=== PATIENT | female | born 1955 | race Caucasian/White ===

== ENCOUNTER 2018-04-23 19:20 | Emergency (ER) | payer BC, SELFPAY ==
[2018-04-23 19:21] VITALS: BP 159/75; PULSE 95; RESP 16; TEMP 37.2; O2SAT 95; BMI 29.5
--- NOTE | 2018-04-23 19:25 | RAD_ITS ---
STUDY: X-RAY - LEFT FOOT CLINICAL: Female, 62 years old. Fifth toe injury TECHNIQUE: 3 view(s) of the foot. COMPARISON: None. FINDINGS: There is a tiny plantar aspect calcaneal spur. Normal visualized subtalar, talonavicular, calcaneocuboid, tarsal and tarsometatarsal articulations. Normal metatarsi. Normal metatarsophalangeal joint of the great toe. Normal tibial and fibular sesamoid bones. Normal interphalangeal joint of the great toe. Normal phalanges of the great toe. Normal second through fifth metatarsophalangeal joints. There is a nondisplaced oblique fracture of the base of the fifth proximal phalanx. The fracture line involves the fifth metatarsophalangeal joint space. The soft tissue structures are unremarkable. RAD/Foot min 3 Views IMPRESSION: Nondisplaced oblique fracture of the base of the fifth proximal phalanx, involving the fifth metatarsophalangeal joint space. Tiny plantar aspect calcaneal spur. Electronically Signed: Nate Nath MD at 19:55 EDT , Service support ,
--- NOTE | 2018-04-23 20:11 | ED.DCSUM_ITS ---
- ER Visit Summary Date of Service: 04/23/18 Chief Complaint: [Injury left foot] History of Present Illness: The patient is a 62 F [presents the emergency department complaint of an injury to her left foot that occurred approximately 5 PM today. Patient states that she accidentally kicked a table with her foot. Patient having pain at the base of her fifth toe. She denies any other injuries.] Physical Examination: [Left foot-patient has tenderness palpation at the base of the fifth toe. No obvious deformity. No significant ecchymosis or bruising noted. She is neurovascular intact.] Test Results: [X-ray of the left foot obtained showed a fracture at the base of the proximal phalanx of the fifth toe.] Emergency Department Course and Treatment: [Patient had the fifth toe and fourth toe miranda taped] Treatment Plan: [Ice and elevation and Tylenol for discomfort. I will write her a prescription for a few [place] for severe pain should she need it.] Disposition: [Discharged home in stable condition] Impression: [Fracture left fifth toe proximal phalanx base] This note was generated with [employer] dictation software. It may contain incorrect words, spelling, and punctuation that were not noted in review of the chart prior to signing ED Disposition - Plan for ED Patient: Chief Complaint: Lower Extremity Injury Referrals: Anabel Daniel MD [Primary Care Provider] -
--- NOTE | 2018-04-23 20:12 | DCINST.ED_ITS ---
ED Disposition - Plan for ED Patient: Chief Complaint: Lower Extremity Injury Instructions: ED Fx Toe Closed Prescriptions: Hydrocodone Bitart/Apap 5-325 [[place] 5MG-325MG] 1 tab PO Q4H PRN PRN 2 Days #10 tab PRN Reason: Pain Referrals: Anabel Daniel MD [Primary Care Provider] - 5-7 Days
== END 2018-04-23 20:37 | disposition home or self-care (01) ==
PROVIDERS: Emergency Provider Emergency Medicine; Family Provider Internal Medicine; PCP Internal Medicine
DX: S92.515A Nondisplaced fracture of proximal phalanx of left lesser toe(s), initial encounter for closed fracture (principal); Z79.51 Long term (current) use of inhaled steroids; Z79.82 Long term (current) use of aspirin; Z79.899 Other long term (current) drug therapy; W22.09XA Striking against other stationary object, initial encounter; Y93.01 Activity, walking, marching and hiking; Y92.89 Other specified places as the place of occurrence of the external cause; Y99.8 Other external cause status
CPT/HCPCS: 73630; 99282

== ENCOUNTER → 2020-03-30 | Outpatient (CLI) | payer BC, SELFPAY | END | disposition home or self-care (01) | LOC: LABSPEC 13:09 | PROVIDERS: Referring Provider Family Medicine; Visit Provider Family Medicine | DX: Z03.818 Encounter for observation for suspected exposure to other biological agents ruled out (principal) | CPT/HCPCS: 87635; U0003 ==

== ENCOUNTER → 2020-04-01 | Outpatient (CLI) | payer BC, SELFPAY | END | disposition home or self-care (01) | LOC: LABSPEC 15:42 | PROVIDERS: Visit Provider Family Medicine | DX: Z03.818 Encounter for observation for suspected exposure to other biological agents ruled out (principal) | CPT/HCPCS: 87635; U0003 ==

== ENCOUNTER → 2020-04-15 | Outpatient (CLI) | payer BC, SELFPAY | END | disposition home or self-care (01) | LOC: LABSPEC 11:26 | PROVIDERS: Referring Provider Family Medicine; Visit Provider Family Medicine | DX: Z03.818 Encounter for observation for suspected exposure to other biological agents ruled out (principal) | CPT/HCPCS: 87635; U0003 ==

== ENCOUNTER → 2020-04-29 | Outpatient (CLI) | payer BC, SELFPAY | END | disposition home or self-care (01) | LOC: LABSPEC 16:26 | PROVIDERS: Referring Provider Family Medicine; Visit Provider Family Medicine | CPT/HCPCS: 87635; U0003 ==

== ENCOUNTER → 2020-05-13 | Outpatient (CLI) | payer BC, SELFPAY | END | disposition home or self-care (01) | LOC: LABSPEC 10:09 | PROVIDERS: Referring Provider Family Medicine; Visit Provider Family Medicine | DX: Z03.818 Encounter for observation for suspected exposure to other biological agents ruled out (principal) | CPT/HCPCS: 87635; U0003 ==

== ENCOUNTER → 2020-05-27 | Outpatient (CLI) | payer BC, SELFPAY | END | disposition home or self-care (01) | LOC: LABSPEC 11:59 | PROVIDERS: Referring Provider Family Medicine; Visit Provider Family Medicine | DX: Z03.818 Encounter for observation for suspected exposure to other biological agents ruled out (principal) | CPT/HCPCS: 87635; U0003 ==

== ENCOUNTER 2022-02-13 10:31 | Emergency (ER) | payer OTHER, SELFPAY ==
[2022-02-13 10:31] VITALS: BP 167/75; PULSE 72; RESP 14; TEMP 36.6; O2SAT 98; BMI 30.5
--- NOTE | 2022-02-13 10:58 | EKG12_ITS ---
Test Reason : high bp Blood Pressure : / mmHG Vent. Rate : 065 BPM Atrial Rate : 065 BPM P-R Int : 186 ms QRS Dur : 078 ms QT Int : 428 ms P-R-T Axes : 068 022 049 degrees QTc Int : 445 ms Normal sinus rhythm Septal infarct , age undetermined Abnormal ECG Confirmed by MANDA KINGSLEY, FADIA ([id number]), visual effects editor LINA DENIS ([id number]) on 02/14/2022 1:11:27 PM Referred By: Confirmed By:FADIA HOLMAN MD
--- NOTE | 2022-02-13 10:59 | EDS_ITS ---
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 She had a few seconds of slight discomfort in her chest also. No fevers or chills. No vision changes. No neck pain. She went to a birthday alliance party yesterday and had a trey bar meal. PFSH [facility] Home Medications amlodipine 10 mg tablet 10 mg PO DAILY 05/14/13 [History Last Taken 05/14/13 08:00] gabapentin 600 mg tablet 1 tab PO DAILY 02/13/22 [History Last Taken Unknown] hydrochlorothiazide 12.5 mg capsule 1 cap PO DAILY 02/13/22 [History Last Taken Unknown] pravastatin 20 mg tablet 1 tab PO DAILY 02/13/22 [History Last Taken Unknown] tizanidine 2 mg tablet 1 tab PO DAILY 02/13/22 [History Last Taken Unknown] Allergy/AdvReac Type Severity Reaction Status Date / Time No Known Allergies Allergy Verified 02/13/22 10:32 Social History Smoking Status: Never smoker ROS ROS ED ROS Narrative Past medical history: Reviewed, hypertension, hypercholesterolemia Medications: Reviewed Social history: Noncontributory Review of systems: All systems negative except as indicated General: No fever Eyes: No visual changes ENT: No upper airway congestion, normal voice Neck: No neck pain Cardiovascular: No chest pain Respiratory: No shortness of breath or cough Gastrointestinal: No abdominal pain, nausea vomiting or diarrhea Genitourinary: No dysuria Musculoskeletal: Denies myalgias no difficulty with ambulation Skin: No rash Neurological: No memory loss, confusion or any focal weakness. Slight headache. Psych: No recent behavioral changes Hematologic: No easy bleeding or easy bruising EXAM Physical Exam Narrative Exam Narrative: Physical exam General: Well nourished, Well developed, No Acute Distress Head: Normocephalic, Atraumatic Eyes: Conjunctiva not pale ENT: Moist mucous membranes Neck: Supple, Nontender, No lymphadenopathy Cardiovascular: Regular rate, Regular rhythm Respiratory: No distress, CTA bilaterally Abdomen: Soft, Nontender, Nondistended Back: Nontender, Normal Inspection. Negative for: CVA tenderness Extremities: Nontender, No edema Skin: Normal color, No rash Neurological: Alert, Normal Strength, Normal Sensation Psychological: Normal affect Const Vital Signs: 02/13/22 10:31 02/13/22 11:21 02/13/22 11:21 Temperature 97.9 F Temperature Source Temporal Pulse Rate 72 61 Respiratory Rate 14 Respiratory Effort Normal Blood Pressure 167/75 H 139/63 H Blood Pressure Mean 105 88 Pulse Ox 98 Oxygen Delivery Method Room Air MDM MDM MDM Narrative Medical decision making narrative: Patient's work-up is unremarkable. She appears well. Her pressure is now lower, 139/63. She appears well, I do not believe further testing is needed. Lab Data Labs: Laboratory Results - last 24 hr 02/13/22 02/13/22 11:25 11:25 WBC 5.3 RBC 5.12 Hgb 15.0 Hct 46.2 MCV 90.2 MCH 29.3 MCHC 32.5 RDW Std Deviation 41.4 RDW Coeff of Starr 12.6 Plt Count 231 MPV 9.5 Immature Gran % (Auto) 0.200 Neut % (Auto) 57.7 Lymph % (Auto) 31.4 [place] % (Auto) 8.0 Eos % (Auto) 1.7 Baso % (Auto) 1.0 Absolute Neuts (auto) 3.0 Absolute Lymphs (auto) 1.65 Nucleated RBC % 0 Sodium 141 Potassium 3.7 Chloride 111 H Carbon Dioxide 25.0 Anion Gap 5 BUN 18 Creatinine 0.81 Estim Creat Clear Calc 67.34 Est GFR (MDRD) Af Amer 92 Est GFR (MDRD) Non-Af 76 BUN/Creatinine Ratio 22.3 H Glucose 93 Calcium 10.1 Total Bilirubin 0.50 AST 21 ALT 28 Alkaline Phosphatase 88 Troponin I High Sens < 3 L Total Protein 8.2 Albumin 4.4 Globulin 3.8 Albumin/Globulin Ratio 1.2 EKG Initial EKG: Comments: Sinus rhythm with a rate of 65. Normal SC and QTc intervals. No acute ischemic changes. Interpreted by emergency doctor. Discharge Plan Triage Chief Complaint: Hypertension ED Provider: Cruz Berg Dx/Rx/DC Orders Clinical Impression: HTN (hypertension), Headache Instructions: Controlling High Blood Pressure Prescriptions: No Action amlodipine 10 MG tablet 10 mg PO DAILY gabapentin 600 mg tablet 1 tab PO DAILY tizanidine 2 mg tablet 1 tab PO DAILY Label Comments: TAKE 1 TABLET BY MOUTH TWICE A DAY hydrochlorothiazide 12.5 mg capsule 1 cap PO DAILY Label Comments: TAKE 1 CAPSULE BY MOUTH EVERY DAY pravastatin 20 mg tablet 1 tab PO DAILY Label Comments: TAKE 1 TABLET BY MOUTH EVERYDAY AT BEDTIME Primary Care Provider: Anabel Daniel Referrals: Anabel Daniel MD [Primary Care Provider] - 3-5 Days Disposition Disposition: Home, Self Care
[2022-02-13 11:21] VITALS: BP 139/63; PULSE 61
[2022-02-13] MEDS: 0.9% Normal Saline 1,000 ML 1000 ML IV (11:24)
[2022-02-13 11:33] LABS: Absolute Lymphocyte Count 1.65 X10^3/uL (0.83-4.51); Basophil# 0.05 X10^3/uL; Eosinophil# 0.09 X10^3/uL; Eosinophils% 1.7 % (0-5); Hematocrit 46.2 % (37-47); Lymphocyte # 1.65 X10^3/ul (0.83-4.51); Lymphocyte % 31.4 % (19-41); Mean Corp Hgb Conc 32.5 g/dL (32-36); Mean Corpuscular Hgb 29.3 pg (27.0-32.0); Mean Corpuscular Volume 90.2 fL (81-99); Mean Platelet Vol. 9.5 fl (6.2-12.0); Monocyte# 0.42 X10^3/uL; NRBC Flagged by Analyzer 0 % (0-5); Neutrophil # 3.04 X10^3/uL (2.7-7.7); Neutrophil % 57.7 % (47-70); Platelet Count 231 K/mm3 (150-450); RBC Distribution Width CV 12.6 % (11.6-14.6); RBC Distribution Width SD 41.4 fl (35.1-43.9); Red Blood Count 5.12 M/mm3 (4.2-5.4); White Blood Count 5.3 K/mm3 (4.4-11.0)
[2022-02-13 11:50] LABS: ALB/GLOB Ratio 1.2 RATIO (0.9-2.4); AST(SGOT) 21 U/L (15-37); Alanine Aminotransfer ALT/SGPT 28 U/L (13-56); Albumin, Serum 4.4 g/dL (3.2-5.0); Alkaline Phosphatase 88 U/L (45-117); Anion Gap 5 (5-15); BUN 18 mg/dL (7-18); BUN/Creat Ratio 22.3 RATIO (10-20); Calcium,Total 10.1 mg/dL (8.5-10.1); Chloride 111 mmol/L (98-107); Creatinine, Serum 0.81 mg/dL (0.55-1.02); EST Glomerular Filtration Rate 76 mL/min (>60); Est Glom Filt Rate - Afr Amer 92 mL/min (>60); Estimated Creatinine Clearance 67.34 ml/min; Globulin 3.8 g/dL (2.2-4.2); Glucose 93 mg/dL (74-106); Potassium 3.7 mmol/L (3.5-5.1); Protein, Total 8.2 g/dL (6.4-8.2); Sodium Level 141 mmol/L (136-145); Troponin-I HS < 3 pg/mL (3.0-54.0)
[2022-02-13] MEDS: Ketorolac 15 MG/ML Vial IV (12:38)
[2022-02-13 12:39] VITALS: BP 149/71; PULSE 68
== END 2022-02-13 12:47 | disposition home or self-care (01) ==
PROVIDERS: Emergency Provider Emergency Medicine; PCP Internal Medicine; Visit Provider Emergency Medicine
DX: I10 Essential (primary) hypertension (principal); E78.00 Pure hypercholesterolemia, unspecified; R51.9 Headache, unspecified; Z79.899 Other long term (current) drug therapy
CPT/HCPCS: 80053; 84484; 85025; 93005; 96361; 96374; 99283; A4216

== ENCOUNTER 2022-10-24 17:31 | Emergency (ER) | payer MEDICARE, SELFPAY ==
[2022-10-24 17:32] VITALS: BP 148/73; PULSE 87; RESP 16; TEMP 36.4; O2SAT 99; BMI 32.8
--- NOTE | 2022-10-24 17:45 | CT_ITS ---
STUDY: CT Abdomen And Pelvis W/ Contrast Injection 10/24/2022 8:21 PM REASON FOR EXAM: Female, 67 years old. Abdominal pain rule out kidney stone right Individualized dose optimization techniques were used for this CT. COMPARISON: None. TECHNIQUE: CT Abdomen And Pelvis W/ Contrast Injection IV 100mL Isovue-300 FINDINGS: The visualized lung bases are unremarkable. The visualized portions of the heart are within normal limits. Normal liver. Normal gallbladder and extrahepatic biliary system. Normal spleen. Normal pancreas. Normal bilateral adrenal glands. Non obstructive 2 mm right renal parenchymal stones. Non obstructive 2 mm left renal parenchymal stones. Moderate hydronephrosis caused by 3.2 mm right UVJ stone. Fluid around the kidney suggest renal forniceal rupture. Normal visualized stomach. Normal small intestine. Stool throughout the colon. The appendix is visualized and appears normal. There are calcifications of the abdominal aorta. This is consistent for atherosclerotic disease. There is NO abdominal aortic aneurysm. Vascular workup can be obtained based on clinical correlation. Normal inferior vena cava. Subcentimeter mesenteric lymph nodes. Normal urinary bladder. There is atrophy of the uterus. There is an umbilical hernia containing fat. There are diffuse degenerative changes of the visualized lumbar spine. CT/Abdomen/Pelvis W IV Cont ONLY IMPRESSION: (NOT LISTED IN ORDER OF SIGNIFICANCE) Moderate hydronephrosis caused by 3.2 mm right UVJ stone. Other findings as above. Electronically Signed: Ray Montenegro MD at 20:24 EDT ,
[2022-10-24 19:05] LABS: Absolute Lymphocyte Count 0.79 X10^3/uL (0.83-4.51); Absolute Neutrophil Count 8.9 X10^3/uL (2.0-7.7); Basophil# 0.04 X10^3/uL; Basophil% 0.4 % (0-1); Eosinophil# 0.02 X10^3/uL; Eosinophils% 0.2 % (0-5); Hematocrit 44.4 % (37-47); Hemoglobin 14.3 g/dL (12.0-15.0); Lymphocyte # 0.79 X10^3/ul (0.83-4.51); Lymphocyte % 7.8 % (19-41); Mean Corp Hgb Conc 32.2 g/dL (32-36); Mean Corpuscular Hgb 29.4 pg (27.0-32.0); Mean Corpuscular Volume 91.4 fL (81-99); Mean Platelet Vol. 9.6 fl (6.2-12.0); Monocyte# 0.39 X10^3/uL; Monocyte% 3.8 % (0-10); NRBC Flagged by Analyzer 0 % (0-5); Neutrophil # 8.89 X10^3/uL (2.7-7.7); Neutrophil % 87.3 % (47-70); Platelet Count 253 K/mm3 (150-450); RBC Distribution Width CV 13.1 % (11.6-14.6); RBC Distribution Width SD 43.9 fl (35.1-43.9); Red Blood Count 4.86 M/mm3 (4.2-5.4); White Blood Count 10.2 K/mm3 (4.4-11.0)
[2022-10-24] MEDS: Ketorolac 15 MG/ML Vial IV (19:06)
[2022-10-24] MEDS: 0.9% Normal Saline 1,000 ML 1000 ML IV (19:06)
[2022-10-24] MEDS: Morphine 4 MG/ML Syringe IV (19:06)
[2022-10-24] MEDS: Ondansetron 4 MG/2 ML Vial IV (19:07)
[2022-10-24 19:33] LABS: ALB/GLOB Ratio 1.1 RATIO (0.9-2.4); AST(SGOT) 25 U/L (15-37); Alanine Aminotransfer ALT/SGPT 42 U/L (13-56); Albumin, Serum 4.1 g/dL (3.2-5.0); Alkaline Phosphatase 99 U/L (45-117); Anion Gap 2 (5-15); BUN 23 mg/dL (7-18); BUN/Creat Ratio 21.3 RATIO (10-20); Calcium,Total 9.9 mg/dL (8.5-10.1); Chloride 106 mmol/L (98-107); Creatinine, Serum 1.08 mg/dL (0.55-1.02); EST Glomerular Filtration Rate 54 mL/min (>60); Est Glom Filt Rate - Afr Amer 65 mL/min (>60); Estimated Creatinine Clearance 49.83 ml/min; Globulin 3.7 g/dL (2.2-4.2); Glucose 138 mg/dL (74-106); Lipase 34 U/L (13-75); Potassium 3.8 mmol/L (3.5-5.1); Protein, Total 7.8 g/dL (6.4-8.2); Sodium Level 136 mmol/L (136-145); Troponin-I HS (w/2H Reflex) 4 pg/mL (3.0-54.0)
[2022-10-24] MEDS: Contrast Allergy Safety Check IV (20:16)
[2022-10-24 20:20] LABS: Bacteria 0 SEEN /hpf (None Seen); Mucous, Urine 0 SEEN /hpf (<or=2+); Squamous Epithelial Cells - UA 0 SEEN /hpf (5-10); White Blood Cells 0 SEEN /hpf (0-5)
[2022-10-24 20:21] LABS: Color, Urine Yellow (Yellow); Glucose, Dipstick Normal (Normal); Ketone-Dipstick 5 mg/dl (Negative); Leukocyte Esterase-Dipstick Negative /ul (Negative); Nitrite-Dipstick Negative (Negative); Occult Blood-Urine 250 /ul (Negative); Protein-Dipstick 30 mg/dl (Negative); Urine Bilirubin Dipstick Negative (Negative); Urine Clarity Sl. Cloudy (Clear); Urine Urobilinogen Normal (Normal)
[2022-10-24 20:27] LABS: Red Blood Cells-Urine 50-100 SEEN /hpf (0-5)
--- NOTE | 2022-10-24 20:57 | EX.ED.DYSGE1 ---
HPI History of Present Illness Chief Complaint: Flank Pain Detail of Chief Complaint: Right lower back pain, flank pain since 10 AM Narrative Narrative: Patient is a 67-year-old female who is presenting to the ER with chief complaint of right lower back pain that radiates to her right flank, right lower quadrant. Patient has no urinary frequency urgency or burning. Patient had acute onset of this pain at 10 AM. 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 Patient still has her appendix. Patient has no chest pain or shortness of breath. Patient has no headache or neck pain. Patient is on no heavy lifting, twisting or turning. Patient has no other acute complaints at this time. Patient has no history of kidney stone. Patient has no rash. PFSH PFS Home Medications amlodipine 10 mg tablet 10 mg PO DAILY 05/14/13 [History Last Taken 05/14/13 08:00] gabapentin 600 mg tablet 1 tab PO DAILY 02/13/22 [History Last Taken Unknown] hydrochlorothiazide 12.5 mg capsule 1 cap PO DAILY 02/13/22 [History Last Taken Unknown] pravastatin 20 mg tablet 1 tab PO DAILY 02/13/22 [History Last Taken Unknown] tizanidine 2 mg tablet 1 tab PO DAILY 02/13/22 [History Last Taken Unknown] cephalexin 500 mg capsule 500 mg PO Q12 #14 CAPSULES 10/24/22 [Rx Last Taken Unknown] ketorolac 10 mg tablet 10 mg PO Q8H PRN pain 3 days #10 tabs 10/24/22 [Rx Last Taken Unknown] ondansetron 4 mg disintegrating tablet 4 mg PO Q4H PRN PRN Nausea #10 tabs 10/24/22 [Rx Last Taken Unknown] oxycodone-acetaminophen 5 mg-325 mg tablet 1 tab PO Q4H PRN PRN Pain 3 days #12 TABLETS 10/24/22 [Rx Last Taken Unknown] tamsulosin 0.4 mg capsule 0.4 mg PO DAILY #7 CAPSULES 10/24/22 [Rx Last Taken Unknown] Allergy/AdvReac Type Severity Reaction Status Date / Time No Known Allergies Allergy Verified 10/24/22 17:33 Social History Smoking Status: Never smoker ROS ROS ED ROS Narrative REVIEW OF SYSTEMS: Unless otherwise stated in this report the patient's positive and negative responses for review of systems for constitutional, eyes, ENT, cardiovascular, respiratory, gastrointestinal, neurological, , musculoskeletal, and integument systems and related systems to the presenting problem are either stated in the history of present illness or were not pertinent or were negative for the symptoms and/or complaints related to the presenting medical problem. EXAM Physical Exam Narrative Exam Narrative: Vital signs reviewed and patient is not hypoxic. General: The patient appears well and in mild to moderate distres secondary to pain s . Patient is resting uncomfortably on cart. Not toxic, lethargic, or listless. Skin: Warm, dry, no pallor noted. There is no rash noted. Head: Normocephalic, atraumatic Eye: Normal conjunctiva, no drainage, EOMI. PERRL. Ears, Nose, Mouth, and Throat: oral mucosa is moist. Nares patent. Mouth without vesicles. Ear canals patent. Tm's without Erythema Cardiovascular: Regular Rate and Rhythm, no murmurs, gallops, or rubs Respiratory: Patient is in no distress, no accessory muscle use, lungs are clear to auscultation, no wheezing, rales or rhonchi Back: non-tender, patient has moderate right CVA tenderness to palpation, mild right flank pain, no left CVA tenderness to palpation, no left flank pain. NO CTLS midline or paracervical tenderness to palpation. GI: Soft, no right upper quadrant or right lower quadrant tenderness to palpation. No suprapubic tenderness to palpation. No rash. No tenderness to palpation, no masses appreciated. No rebound, guarding, or rigidity noted. Musculoskeletal: The patient has full range of motion of all extremities and joints with no difficulty. Patient has no motor, no sensory deficits. Neurological: A&O x4, normal speech, no focal neurological deficits. Psychiatric: Cooperative Const Vital Signs: 10/24/22 17:32 10/24/22 21:01 Temperature 97.6 F L Temperature Source Temporal Pulse Rate 87 85 Respiratory Rate 16 18 Blood Pressure 148/73 H 134/69 H Blood Pressure Mean 98 90 Pulse Ox 99 95 Oxygen Delivery Method Room Air Room Air [facility] Lab Data Attestation: I reviewed the patient's lab results. Labs: Laboratory Results - last 24 hr 10/24/22 10/24/22 10/24/22 18:15 18:15 18:59 WBC Cancelled 10.2 Corrected WBC Cancelled RBC Cancelled 4.86 Hgb Cancelled 14.3 Hct Cancelled 44.4 MCV Cancelled 91.4 MCH Cancelled 29.4 MCHC Cancelled 32.2 RDW Std Deviation Cancelled 43.9 RDW Coeff of Starr Cancelled 13.1 Plt Count Cancelled 253 MPV Cancelled 9.6 Immature Gran % (Auto) Cancelled 0.500 Neut % (Auto) Cancelled 87.3 H Lymph % (Auto) Cancelled 7.8 L [place] % (Auto) Cancelled 3.8 Eos % (Auto) Cancelled 0.2 Baso % (Auto) Cancelled 0.4 Absolute Neuts (auto) Cancelled 8.9 H Absolute Lymphs (auto) Cancelled 0.79 L Total Counted Cancelled Neutrophils % (Manual) Cancelled Band Neutrophils % Cancelled Lymphocytes % (Manual) Cancelled Monocytes % (Manual) Cancelled Eosinophils % (Manual) Cancelled Basophils % (Manual) Cancelled Metamyelocytes % Cancelled Myelocytes % Cancelled Promyelocytes % Cancelled Blast Cells % Cancelled Plasma Cell % (Manual) Cancelled Other Cells % Cancelled Nucleated RBC % Cancelled 0 Nucleated RBCs/100 WBC Cancelled Differential Comment Cancelled Diff Path Review Cancelled Hypersegmented Neuts Cancelled Atypical Lymphocytes Cancelled Reactive Lymphocytes Cancelled Smudge Cells Cancelled Toxic Granulation Cancelled Toxic Vacuolation Cancelled Dohle Bodies Cancelled Ruby Rods Cancelled Platelet Estimate Cancelled Plt Morphology Comment Cancelled RBC Morphology Cancelled Polychromasia Cancelled Hypochromasia Cancelled Poikilocytosis Cancelled Basophilic Stippling Cancelled Anisocytosis Cancelled Microcytosis Cancelled Macrocytosis Cancelled Spherocytes Cancelled Sickle Cells Cancelled Target Cells Cancelled Tear Drop Cells Cancelled Ovalocytes Cancelled Stomatocytes Cancelled Benedict-[place] Grulla Bodies Cancelled [place] Cells Cancelled Bite Cells Cancelled Crenated Cell Cancelled Acanthocytes (Spur) Cancelled Rouleaux Cancelled Schistocytes Cancelled Sodium Cancelled Potassium Cancelled Chloride Cancelled Carbon Dioxide Cancelled Anion Gap Cancelled BUN Cancelled Creatinine Cancelled Estim Creat Clear Calc Cancelled Est GFR (MDRD) Af Amer Cancelled Est GFR (MDRD) Non-Af Cancelled BUN/Creatinine Ratio Cancelled Glucose Cancelled Calcium Cancelled Total Bilirubin Cancelled AST Cancelled ALT Cancelled Alkaline Phosphatase Cancelled Troponin I High Sens Cancelled Total Protein Cancelled Albumin Cancelled Globulin Cancelled Albumin/Globulin Ratio Cancelled Lipase Cancelled Urine Color Urine Clarity Urine pH Ur Specific [place] Urine Protein Urine Glucose (UA) Urine Ketones Urine Occult Blood Urine Nitrite Urine Bilirubin Urine Urobilinogen Ur Leukocyte Esterase Urine RBC Urine WBC Ur Squamous Epith Cells Urine Bacteria Urine Mucus 10/24/22 10/24/22 18:59 20:12 WBC Corrected WBC RBC Hgb Hct MCV MCH MCHC RDW Std Deviation RDW Coeff of Starr Plt Count MPV Immature Gran % (Auto) Neut % (Auto) Lymph % (Auto) [place] % (Auto) Eos % (Auto) Baso % (Auto) Absolute Neuts (auto) Absolute Lymphs (auto) Total Counted Neutrophils % (Manual) Band Neutrophils % Lymphocytes % (Manual) Monocytes % (Manual) Eosinophils % (Manual) Basophils % (Manual) Metamyelocytes % Myelocytes % Promyelocytes % Blast Cells % Plasma Cell % (Manual) Other Cells % Nucleated RBC % Nucleated RBCs/100 WBC Differential Comment Diff Path Review Hypersegmented Neuts Atypical Lymphocytes Reactive Lymphocytes Smudge Cells Toxic Granulation Toxic Vacuolation Dohle Bodies Ruby Rods Platelet Estimate Plt Morphology Comment RBC Morphology Polychromasia Hypochromasia Poikilocytosis Basophilic Stippling Anisocytosis Microcytosis Macrocytosis Spherocytes Sickle Cells Target Cells Tear Drop Cells Ovalocytes Stomatocytes Benedict-[place] Grulla Bodies [place] Cells Bite Cells Crenated Cell Acanthocytes (Spur) Rouleaux Schistocytes Sodium 136 Potassium 3.8 Chloride 106 Carbon Dioxide 28.0 Anion Gap 2 L BUN 23 H Creatinine 1.08 H Estim Creat Clear Calc 49.83 Est GFR (MDRD) Af Amer 65 Est GFR (MDRD) Non-Af 54 L BUN/Creatinine Ratio 21.3 H Glucose 138 H Calcium 9.9 Total Bilirubin 0.40 AST 25 ALT 42 Alkaline Phosphatase 99 Troponin I High Sens 4 Total Protein 7.8 Albumin 4.1 Globulin 3.7 Albumin/Globulin Ratio 1.1 Lipase 34 Urine Color Yellow Urine Clarity Sl. Cloudy Urine pH 7.0 Ur Specific [place] 1.010 Urine Protein 30 H Urine Glucose (UA) Normal Urine Ketones 5 H Urine Occult Blood 250 H Urine Nitrite Negative Urine Bilirubin Negative Urine Urobilinogen Normal Ur Leukocyte Esterase Negative Urine RBC 50-100 SEEN Urine WBC 0 SEEN Ur Squamous Epith Cells 0 SEEN Urine Bacteria 0 SEEN Urine Mucus 0 SEEN Radiography Diagnostic Testing: Clinical Impression(s) from Imaging Studies Abdomen/Pelvis CT 10/24/22 17:45 IMPRESSION: (NOT LISTED IN ORDER OF SIGNIFICANCE) Moderate hydronephrosis caused by 3.2 mm right UVJ stone. Other findings as above. Electronically Signed: Ray Montenegro MD at 20:24 EDT Reading Location ID and State: [facility] / [place] , Service support , Treatment and Re-Evaluation Comments:: Patient CT the abdomen pelvis shows a 3.2 mm stone at the right UVJ. Patient has moderate hydronephrosis. Patient has no significant signs of urinary tract infection. Patient will be sent home with Percocet, Zofran, Toradol, Flomax and Keflex prophylactically secondary to moderate hydronephrosis. Patient was given urine strainers. Education on kidney stone was done at bedside and on discharge paperwork. Patient has no history of kidney stone. Urine and creatinine are slightly elevated. Patient was given IV fluids. Patient will follow-up with urology, patient was given reasons on why to return to the ER including intractable nausea, vomiting and pain. Discharge Plan Triage Chief Complaint: Flank Pain ED Provider: Pietro Monge Dx/Rx/DC Orders Clinical Impression: Kidney stone on right side, Hydronephrosis Instructions: Healthy Kidneys, Treating Kidney Stones ..., Preventing Kidney Stones, ED Kidney Stone w/ Colic Prescriptions: New oxycodone-acetaminophen [oxycodone-acetaminophen] 5-325 mg tablet 1 tab PO Q4H PRN MDD 6 PRN (Reason: Pain) 3 Days Qty: 12 0RF tamsulosin [tamsulosin] 0.4 mg capsule 0.4 mg PO DAILY Qty: 7 0RF cephalexin [cephalexin] 500 mg capsule 500 mg PO Q12 Qty: 14 0RF ondansetron [ondansetron] 4 mg tablet,disintegrating 4 mg PO Q4H PRN PRN (Reason: Nausea) Qty: 10 0RF ketorolac 10 mg tablet 10 mg PO Q8H PRN (Reason: pain) 3 Days Qty: 10 0RF No Action amlodipine 10 MG tablet 10 mg PO DAILY gabapentin 600 mg tablet 1 tab PO DAILY tizanidine 2 mg tablet 1 tab PO DAILY Label Comments: TAKE 1 TABLET BY MOUTH TWICE A DAY hydrochlorothiazide 12.5 mg capsule 1 cap PO DAILY Label Comments: TAKE 1 CAPSULE BY MOUTH EVERY DAY pravastatin 20 mg tablet 1 tab PO DAILY Label Comments: TAKE 1 TABLET BY MOUTH EVERYDAY AT BEDTIME Stand Alone Forms: ED Work / School Excuse, Work / School Excuse Primary Care Provider: Anabel Daniel Referrals: Anabel Daniel MD [Primary Care Provider] - Cruzito Everett MD [Med Staff - Active Staff] - (Right kidney stone 3.2 mm at the right UVJ, moderate hydronephrosis.) Disposition Disposition: Home, Self Care
[2022-10-24 21:01] VITALS: BP 134/69; PULSE 85; RESP 18; O2SAT 95
[2022-10-24 21:04] LABS: Reflex Troponin-HS? (from REC) Y
== END 2022-10-24 21:44 | disposition home or self-care (01) ==
PROVIDERS: Emergency Provider Emergency Medicine; PCP Internal Medicine; Visit Provider Emergency Medicine
DX: N13.2 Hydronephrosis with renal and ureteral calculous obstruction (principal)
CPT/HCPCS: 74177; 80053; 81001; 83690; 84484; 85025; 96361; 96374; 96375; 99283; J7030; Q9967; A4216; J2405

== ENCOUNTER 2022-11-01 05:50 | Day surgery (SDC) | payer MEDICARE, SELFPAY ==
[2022-11-01] MEDS: Lactated Ringers 1,000 ML 15 ML IV ×2 (06:36→11:54)
[2022-11-01 06:37] VITALS: BP 135/78; PULSE 72; RESP 16; TEMP 36.3; O2SAT 96; BMI 32.1
--- NOTE | 2022-11-01 11:57 | PCM.HP.STD ---
HPI - General HPI Narrative OCTAVIO ESTRADA, is a 67 F who presents for treatment of right kidney stones. PFSH Medical History (Updated 11/01/22 @ 11:[address] Cruzito Everett MD) Arthritis Back pain High cholesterol History of edema History of pain when walking Hypertension Non-smoker Pain Post-menopausal Wears glasses Home Medications amlodipine 10 mg tablet 10 mg PO DAILY 05/14/13 [History Last Taken 11/01/22] gabapentin 600 mg tablet 1 tab PO DAILY 02/13/22 [History Last Taken 11/01/22] hydrochlorothiazide 12.5 mg capsule 1 cap PO DAILY 02/13/22 [History Last Taken Unknown] pravastatin 20 mg tablet 1 tab PO DAILY 02/13/22 [History Last Taken Unknown] tizanidine 2 mg tablet 1 tab PO PRN PRN Spasms 02/13/22 [History Last Taken Unknown] ketorolac 10 mg tablet 10 mg PO Q8H PRN pain 3 days #10 tabs 10/24/22 [Rx Last Taken Unknown] cephalexin 500 mg capsule 500 mg PO BID #10 caps 11/01/22 [Rx Last Taken Unknown] oxycodone-acetaminophen 5 mg-325 mg tablet (Endocet) 1 tab PO Q6H PRN pain 7 days #14 tabs 11/01/22 [Rx Last Taken Unknown] Allergy/AdvReac Type Severity Reaction Status Date / Time No Known Allergies Allergy Verified 10/31/22 08:18 Surgical History (Updated 10/31/22 @ 08:27 by Zora Kline) Hx of colonoscopy Hx of eye surgery Hx of right cataract extraction Hx of tubal ligation Social History Smoking Status: Never smoker Vital Signs Vital Signs Vital Signs: 11/01/22 06:34 11/01/22 06:37 Temperature 97.4 F L Temperature Source Temporal Pulse Rate 72 Respiratory Rate 16 Respiratory Pattern Normal Blood Pressure 135/78 H Blood Pressure Mean 97 Blood Pressure Source Monitor Blood Pressure Position Semi-Fowlers Blood Pressure Location Left Arm Pulse Ox 96 Oxygen Delivery Method Room Air Weight Weight: 96 kg Body Mass Index (BMI) 32.1
--- NOTE | 2022-11-01 11:58 | DCINST_ITS ---
Discharge Instructions Diet Discharge Diet: No restrictions Dressing / Incision Call your doctor if your incision/area has: Continuous Slow Oozing, Increased Pain/ Swelling, Increased Redness and Foul Smelling Discharge Call your doctor if you observe: Fever of 101 or Higher, Numbness or Tingling, Shortness of breath, Dizziness, Calf discomfort and Uncontrolled pain Follow Up Care Please Follow Up With: Cruzito Everett MD Test Results: Test results from this visit will be discussed in further detail at your follow- up appointment, if applicable. Discharge Plan Admission Primary Reason for Your Visit: kidney stone Attending Provider: Cruzito Everett Primary Care Provider: Anabel Daniel Discharge Orders/Prescriptions Prescriptions: New cephalexin 500 mg capsule 500 mg PO BID Qty: 10 0RF oxycodone-acetaminophen [Endocet] 5-325 mg tablet 1 tab PO Q6H PRN (Reason: pain) 7 Days Qty: 14 0RF No Action amlodipine 10 MG tablet 10 mg PO DAILY gabapentin 600 mg tablet 1 tab PO DAILY tizanidine 2 mg tablet 1 tab PO PRN PRN (Reason: Spasms) Label Comments: TAKE 1 TABLET BY MOUTH TWICE A DAY hydrochlorothiazide 12.5 mg capsule 1 cap PO DAILY Label Comments: TAKE 1 CAPSULE BY MOUTH EVERY DAY pravastatin 20 mg tablet 1 tab PO DAILY Label Comments: TAKE 1 TABLET BY MOUTH EVERYDAY AT BEDTIME ketorolac 10 mg tablet 10 mg PO Q8H PRN (Reason: pain) 3 Days Qty: 10 0RF Referrals / Follow Up: Anabel Daniel MD [Primary Care Provider] - Cruzito Everett MD [Med Staff - Active Staff] - Disposition Disposition (needs filled in before D/C Order can be placed): Home, Self Care
--- NOTE | 2022-11-01 11:58 | PCM.OPRPT ---
Report of Operation Date of Procedure: 11/01/22 Pre-Operative Diagnosis: Right ureteral calculi renal calculi Post-Operative Diagnosis: Same Surgery/Procedure Performed:: Cystoscopy balloon dilation of the ureter, right ureteroscopy retrograde pyelogram interpretation of fluoroscopic images laser lithotripsy of stones and stent placement Description of Surgical Findings:: This is a patient who presents to the hospital for treatment for an obstructing ureter calculi. I discussed with the patient how the surgery would be performed and we reviewed the risks and benefits of the surgery. The risk and benefits include the risk of failure to remove the stone completely and that the patient may need multiple procedures. We discussed the risk of an infection, the risk of bleeding. We discussed the very rare risk of serious complicated injury to the ureter. The patient understands that if the stone is not able to be removed safely that we may abort the procedure and place a stent. After full discussion and all questions address with the patient the consent form was signed the side was marked appropriately and the patient was taken back to the operating room for the procedure. The patient was taken back to the operating room. After induction of anesthesia by the anesthesiology team the patient was placed in dorsolithotomy position. The genitals were prepped and draped in usual sterile fashion. I went into the bladder with a 21 Romansh rigid cystourethroscope through the urethra. Upon entering the bladder I inspected the trigone the left and right ureteral orifice and the bladder itself. I then cannulated the right ureteral orifice and advanced a 0.038 Glidewire up into the kidney. Then over the Glidewire I advanced a 5 Fr Ureteral catheter and performed a retrograde pyelogram with about 10cc of contrast, to delineate the anatomy and identify the stone location. Then a ureteral balloon dilator was advanced over the wire and the distal ureter was balloon dilated with a 12 Fr x 5cm balloon dilator. After 3 minutes of dilating the ureter the balloon was backloaded off the 0.038 glidewire over the 0.038 guidewire I went in with the flexible 7.5fr ureteroscope. I was able to go inside with the 7.5Fr utereroscope and I pulled out the guidewire and then through the ureteroscope I engage the stone with laser lithotripsy using a 270miron laser fiber with energy setting of 6 Hertz and 0.6 J until the stone was lasered into tiny little pieces that should pass on their own. The stone in the distal ureter had passed but several fragments in the right kidney and renal pelvis were treated. A retrograde pyelogram was performed with 10cc of contrast and no extravasation of contrast or perforation was identified in the ureter there was some mild irritation of the ureter where the stone was located. I then backed out of the ureter left the wire in place and then over the 0.038 guidewire I placed a double coiled pigtail ureteral stent. The ureteral stent was advanced over the 0.038 guidewire under direct fluoroscopic guidance and direct cystoscopic visual guidance, once the stent was in good position I pulled the wire and the stent coiled in the kidney and bladder in good position. I then drained the patient's bladder and the cystoscope was removed and the patient was taken back to the recovery room in good position. The patient was given discharge instructions to call the office for instructions on when to come to the office to have the stent removed. Surgeon: Cruzito Everett Type of Anesthesia: General Drains: stent right Estimated Blood Loss (mL): 0 Admit VTE Documentation VTE Present on Admission: No VTE Mechan Device Prophylaxis: SCD's VTE Pharm Prophylaxis ordered?: No
[2022-11-01] MEDS: Cefazolin 2 GM in 0.9% Normal Saline 100 ML IV (12:04)
[2022-11-01 12:37] VITALS: BP 119/68; BP 135/78; PULSE 67; RESP 16; TEMP 36.6; O2SAT 91
[2022-11-01 12:45] VITALS: BP 124/72; BP 135/78; PULSE 71; RESP 16; O2SAT 93
[2022-11-01 13:00] VITALS: BP 124/68; BP 135/78; PULSE 67; RESP 16; O2SAT 94
[2022-11-01 13:08] VITALS: BP 128/69; BP 135/78; PULSE 64; RESP 16; TEMP 36.4; O2SAT 97
[2022-11-01 13:40] VITALS: BP 135/78
== END 2022-11-01 13:43 | disposition home or self-care (01) ==
LOC: SDC 05:55 → AC 05:55
PROVIDERS: PCP Internal Medicine; Referring Provider Urology; Visit Provider Urology
PROC: 0TJ98ZZ Inspection of Ureter, Via Natural or Artificial Opening Endoscopic (ICD-10-PCS; CPT 52352; principal; 2022-11-01 07:20)
DX: N20.2 Calculus of kidney with calculus of ureter (principal); R31.0 Gross hematuria; I10 Essential (primary) hypertension; E78.00 Pure hypercholesterolemia, unspecified; Z79.1 Long term (current) use of non-steroidal anti-inflammatories (NSAID); Z79.899 Other long term (current) drug therapy
CPT/HCPCS: 52356; 00918; 76000; J7120; C1769; C2617; J2405

== ENCOUNTER 2024-10-21 15:54 | Emergency (ER) | payer MEDICARE, SELFPAY ==
[2024-10-21 15:56] VITALS: BP 148/66; PULSE 85; RESP 16; TEMP 36.8; O2SAT 97
[2024-10-21 16:00] VITALS: O2SAT 94
--- NOTE | 2024-10-21 16:13 | RAD_ITS ---
PROCEDURE: CHEST PA AND LATERAL 10/21/2024 REASON FOR EXAM: 69-year-old female, chest pain over the weekend, worsening today. Shortness of breath. TECHNIQUE: Frontal and lateral views of the chest. COMPARISON: None. FINDINGS: Hardware: None. Heart: The heart size is normal. Mediastinum: There are atherosclerotic calcifications of the thoracic aorta. Lungs: Findings of mild emphysema. No focal consolidation, pleural effusion or pneumothorax. Bones: Mild degenerative changes of the thoracic spine. RAD/Chest PA and Lateral IMPRESSION: Findings of mild emphysema. No acute finding. Reading Location: [id number]
[2024-10-21 16:18] LABS: Absolute Neutrophil Count 2.9 X10^3/uL (2.0-7.7); Basophil# 0.06 X10^3/uL; Basophil% 1.2 % (0-1); Hematocrit 45.4 % (37-47); Hemoglobin 15.1 g/dL (12.0-15.0); Lymphocyte % 33.3 % (19-41); Mean Corp Hgb Conc 33.3 g/dL (32-36); Mean Corpuscular Hgb 29.8 pg (27.0-32.0); Mean Corpuscular Volume 89.7 fL (81-99); Mean Platelet Vol. 9.4 fl (6.2-12.0); Monocyte# 0.37 X10^3/uL; Monocyte% 7.2 % (0-10); NRBC Flagged by Analyzer 0 % (0-5); Neutrophil # 2.87 X10^3/uL (2.7-7.7); Neutrophil % 56.1 % (47-70); Platelet Count 276 K/mm3 (150-450); RBC Distribution Width CV 12.4 % (11.6-14.6); RBC Distribution Width SD 40.7 fl (35.1-43.9); Red Blood Count 5.06 M/mm3 (4.2-5.4); White Blood Count 5.1 K/mm3 (4.4-11.0)
[2024-10-21 16:28] LABS: D-Dimer Quantitative (DVT/PE) 0.44 FEU/ug/m (0.27-0.49)
[2024-10-21 16:55] VITALS: BP 136/74; PULSE 72; RESP 14; O2SAT 95
[2024-10-21 17:00] VITALS: BP 136/74; PULSE 74; RESP 14; O2SAT 98
[2024-10-21] MEDS: Aspirin 81 MG TAB.CHEW 324 MG PO (17:00)
[2024-10-21 17:16] LABS: Anion Gap 12 (5-15); BUN 18 mg/dL (4-19); BUN/Creat Ratio 21.7 RATIO (10-20); Calcium,Total 9.8 mg/dL (7.6-11.0); Carbon Dioxide 23.9 mmol/L (21.0-32.0); Chloride 104 mmol/L (98-108); Creatinine, Serum 0.84 mg/dL (0.70-1.20); EST Glomerular Filtration Rate 76 (>60); Glucose 167 mg/dL (70-99); Potassium 3.6 mmol/L (3.3-5.1); Sodium Level 140 mmol/L (133-145); Troponin T High Sensitivity < 6 ng/L (<=14)
--- NOTE | 2024-10-21 17:17 | EDS_ITS ---
HPI History of Present Illness Chief Complaint: Chest Pain Informant: patient Narrative Narrative: 69-year-old female history of hypertension and hypercholesterolemia presenting to the emergency room with chest pressure. Patient states she developed a midsternal chest pressure that seem to radiate towards the left upper side over the weekend. She thought the perhaps she was getting sick but never developed fever or cough. She has not felt her self wheezing. She states she went to see primary care today where they did an EKG and referred her to the emergency. She states she has never had a stress test or heart cath in the past. No change in exercise tolerance. She does note a bit of shortness of breath with exertion. She states that she has no DVT or PE risk factors or history of. No personal history of malignancy. She states that various forms of heart disease run in her family. [facility] Medical History Wears glasses Post-menopausal Arthritis High cholesterol Back pain Non-smoker History of pain when walking History of edema Hypertension Pain Home Medications ?Medication ?Instructions ?Recorded ?Last Taken ?Type amlodipine 10 mg tablet 10 mg PO DAILY 05/14/1310/14 History gabapentin 600 mg tablet 1 tab PO DAILY 02/13/2210/14 History hydrochlorothiazide 12.5 mg capsule 1 cap PO DAILY 08/06 Unknown History pravastatin 20 mg tablet 1 tab PO DAILY 02/13/22 Unkn own History tizanidine 2 mg tablet 1 tab PO PRN PRN Spasms 08/06 Unknown History ketorolac 10 mg tablet 10 mg PO Q8H PRN pain 3 days #10 10/24/22 Unknown Rx tabs cephalexin 500 mg capsule 500 mg PO BID #10 caps 11/01 Unknown Rx oxycodone-acetaminophen 5 mg-325 1 tab PO Q6H PRN pain 7 days #14 11/01/22 Unknown Rx mg tablet (Endocet) tabs omeprazole 20 mg capsule,delayed 20 mg PO BID #28 CAPS ULES 10/21/24 Unknown Rx release Allergy/AdvReac Type Severity Reaction Status Date / Time No Known Allergies Allergy Verified 10/21/24 15:55 Surgical History Hx of colonoscopy Hx of right cataract extraction Hx of eye surgery Hx of tubal ligation Social History Smoking Status: Never smoker ROS ROS ED Constitutional Constitutional ED: Denies chills, fever(s) or weight loss Eyes Eyes: Denies change in vision or diplopia ENT ENT ED: Denies ear pain, rhinorrhea or sore throat Cardiovascular Cardiovascular: Reports chest pain; Denies orthopnea, palpitations or racing heartbeat Respiratory/Chest Respiratory/Chest: Reports dyspnea on exertion; Denies cough, dyspnea or orthopnea Gastrointestinal Gastrointestinal: Denies abdominal pain, diarrhea, nausea or vomiting Genitourinary Genitourinary ED: Denies dysuria, hematuria or urinary frequency Musculoskeletal Musculoskeletal: Denies arthralgias or myalgias Integumentary Denies abscess or rash Neurologic Neurologic: Denies headache(s) or weakness Psychiatric Psychiatric: Denies anxiety, depression, suicidal ideation or suicidal thoughts Endocrine Endocrinology: Denies polydipsia, polyphagia or polyuria Allergic/Immunologic Allergic/Immunologic ED: Denies mouth swelling, tongue swelling or urticaria EXAM Physical Exam Const Vital Signs: 10/21/24 15:56 10/21/24 16:00 10/21/24 16:55 Temperature 98.2 F Temperature Source Oral Pulse Rate 85 72 Respiratory Rate 16 14 Blood Pressure 148/66 H 136/74 H Blood Pressure Mean 93 94 Pulse Ox 97 94 95 Oxygen Delivery Method Room Air Room Air Room Air 10/21/24 17:00 10/21/24 18:00 Temperature Temperature Source Pulse Rate 74 71 Respiratory Rate 14 15 Blood Pressure 136/74 H 137/69 H Blood Pressure Mean 94 91 Pulse Ox 98 92 Oxygen Delivery Method Room Air Room Air Positive well nourished and well developed General Appearance ED: well developed and NAD HEENT Reports normocephalic, head/scalp atraumatic and moist mucous membranes Eyes PERRL and EOMs intact bilaterally Neck no lymphadenopathy, supple and no JVD Resp normal respiratory effort and clear to auscultation bilaterally Cardio regular rate, regular rhythm and no murmurs GI normal to inspection, nondistended, normoactive bowel sounds and non-tender Palpation: soft Back/Spine no CVA tenderness and normal ROM Extremity normal to inspection General Extremety ED: Negative for edema General Extremity: Negative for edema Neuro oriented x3 and CN's II-XII intact bilaterally Sensorium / Orientation: alert Motor Exam: strength 5/5 throughout Psych mental status grossly normal Mood & Affect: Negative for depressed or tearful Skin no rashes or lesions noted and no wounds MDM MDM MDM Narrative Medical decision making narrative: Differential diagnosis includes but not limited to acute coronary syndrome cardiac dysrhythmia anemia pneumonia pleural effusion pleurisy GERD aortic dissection pulmonary embolism pneumothorax 2 sets of cardiac enzymes are negative. EKG is nonischemic and normal sinus rhythm at 79. My independent interpretation of the chest x-ray is no acute process. D-dimer is normal at 0.44. Hemoglobin 15.1 glucose noted to be 167 Patient got significant improvement with GI cocktail. I do wonder if this could possibly be reflux related. I am going to place her on omeprazole twice daily for 14 days have her follow back up with primary care. Patient is comfortable with this plan will return if worsening or concerns History & Record Review Discussion w/independent historian: Patient and Family Lab Data Attestation: I reviewed the patient's lab results. Labs: Laboratory Results - last 24 hr 10/21/24 10/21/24 16:10 17:54 WBC 5.1 RBC 5.06 Hgb 15.1 H Hct 45.4 MCV 89.7 MCH 29.8 MCHC 33.3 RDW Std Deviation 40.7 RDW Coeff of Starr 12.4 Plt Count 276 MPV 9.4 Immature Gran % (Auto) 0.200 Neut % (Auto) 56.1 Lymph % (Auto) 33.3 Tama % (Auto) 7.2 Eos % (Auto) 2.0 Baso % (Auto) 1.2 H Absolute Neuts (auto) 2.9 Absolute Lymphs (auto) 1.70 Nucleated RBC % 0 D-Dimer Quant (PE/DVT) 0.44 Sodium 140 Potassium 3.6 Chloride 104 Carbon Dioxide 23.9 Anion Gap 12 BUN 18 Creatinine 0.84 Est GFR (MDRD) Non-Af 76 BUN/Creatinine Ratio 21.7 H Glucose 167 H Calcium 9.8 Troponin T High Sens < 6 Troponin T Hi Sens 2 Hr < 6 Radiography Diagnostic Testing: Clinical Impression(s) from Imaging Studies Chest X-Ray 10/21/24 16:13 IMPRESSION: Findings of mild emphysema. No acute finding. Reading Location: [facility] EKG Initial EKG: Attestation: I personally reviewed and interpreted this EKG as follows: Comments: Normal sinus rhythm ventricular rate of 79 bpm Management Discussion w/another healthcare provider: PCP Discharge Plan Triage Chief Complaint: Chest Pain ED Provider: Miguel Chavez Dx/Rx/DC Orders Clinical Impression: Chest pain Instructions: ED Chest Pain, Noncardiac Prescriptions: New omeprazole 20 mg capsule,delayed release(DR/EC) 20 mg PO BID Qty: 28 0RF No Action amlodipine 10 MG tablet 10 mg PO DAILY gabapentin 600 mg tablet 1 tab PO DAILY tizanidine 2 mg tablet 1 tab PO PRN PRN (Reason: Spasms) Patient Comments: TAKE 1 TABLET BY MOUTH TWICE A DAY hydrochlorothiazide 12.5 mg capsule 1 cap PO DAILY Patient Comments: TAKE 1 CAPSULE BY MOUTH EVERY DAY pravastatin 20 mg tablet 1 tab PO DAILY Patient Comments: TAKE 1 TABLET BY MOUTH EVERYDAY AT BEDTIME ketorolac 10 mg tablet 10 mg PO Q8H PRN (Reason: pain) 3 Days Qty: 10 0RF cephalexin 500 mg capsule 500 mg PO BID Qty: 10 0RF oxycodone-acetaminophen [Endocet] 5-325 mg tablet 1 tab PO Q6H PRN (Reason: pain) 7 Days Qty: 14 0RF Primary Care Provider: Anabel Daniel Referrals: Anabel Daniel MD [Primary Care Provider] - 1-2 Weeks Print Language: Hungarian Disposition Disposition: Home, Self Care
--- NOTE | 2024-10-21 17:32 | EKG12_ITS ---
Test Reason : CP Blood Pressure : */* mmHG Vent. Rate : 79 BPM Atrial Rate : 79 BPM P-R Int : 182 ms QRS Dur : 78 ms QT Int : 360 ms P-R-T Axes : 61 13 82 degrees QTcB Int : 412 ms Normal sinus rhythm Nonspecific ST and T wave abnormality Abnormal ECG Confirmed by MANDA KINGSLEY, FADIA ([id number]), newspaper editor managing LINA DENIS ([id number]) on 10/23/2024 8:29:49 AM Referred By: NADIR/RAHUL Confirmed By: FADIA HOLMAN MD
[2024-10-21] MEDS: Lidocaine 2% Viscous15 ML UDC 15 ML PO (17:33)
[2024-10-21] MEDS: Mag Hydrox/Al Hydrox/Simeth 30 ML UDC PO (17:33)
[2024-10-21 18:00] VITALS: BP 137/69; PULSE 71; RESP 15; O2SAT 92
[2024-10-21 18:22] LABS: Troponin T High Sens 2 HR < 6 ng/L (<=14)
[2024-10-21 18:40] VITALS: BP 137/69; PULSE 71; RESP 15; TEMP 36.8; O2SAT 92
== END 2024-10-21 18:44 | disposition home or self-care (01) ==
PROVIDERS: Emergency Provider Emergency Medicine; PCP Internal Medicine; Visit Provider Emergency Medicine
DX: R07.9 Chest pain, unspecified (principal); R06.09 Other forms of dyspnea; I10 Essential (primary) hypertension; E78.00 Pure hypercholesterolemia, unspecified; Z79.899 Other long term (current) drug therapy
CPT/HCPCS: 71046; 80048; 84484; 85025; 85379; 93005; 99284; A4216